=== PATIENT | female | born 1970 | race Caucasian/White ===

== ENCOUNTER 2017-05-11 08:33 | Outpatient (CLI) | payer BC ==
--- NOTE | 2017-05-11 13:05 | NM ---
HEPATOBILIARY SCAN: HISTORY: Right upper quadrant pain. RADIOPHARMACEUTICAL: 5.2 mCi Technetium 99-mebrofenin injected intravenously. FINDINGS: There is good tracer extrication by the liver with prompt excretion into the biliary tract and small bowel loops and normal filling of the gallbladder. The calculated gallbladder ejection fraction foll owing an oral fatty meal measures 41%. IMPRESSION: Normal exam. POS: [facility]
== END 2017-05-11 08:34 | disposition home or self-care (01) ==
LOC: NM 08:33
PROVIDERS: ATTEND Internal Medicine Gastroenterology
DX: R10.11 Right upper quadrant pain (principal)
CPT/HCPCS: 78227; A9537